=== PATIENT | male | born 1965 | race Hispanic/Latino ===

== ENCOUNTER → 2019-02-18 | Day surgery (SDC) | payer SELFPAY ==
[~2019-02-18] MED LIST: ACETAMINOPHEN 1000 MG/100 ML 100 ML IV ONE; ACETAMINOPHEN 1000 MG/100 ML IV ONE; CEFAZOLIN SOD 1 GM/NS 50ML 100 ML IV ONE; DESFLURANE 240 ML BTL INH ONE; DEXAMETHASONE SOD PHOS INJ 4 MG/ML VIAL ONE; EPINEPHRINE 1 MG/ML 30ML VIAL ONE; FENTANYL CITRATE/PF 100MCG/2 ML INJ ONE; GLYCOPYRROLATE INJ 1MG/ 5 ML SYR ONE; KETOROLAC TROMETHAMINE 30 MG/ML VIAL ONE; LIDOCAINE HCL 2% LOCAL INJ 5 ML SDV VIAL INJ ONE; MIDAZOLAM HCL 2 MG/2 ML VIAL ONE; NEOSTIGMINE 5 MG/5ML SYR ONE; ONDANSETRON HCL INJ 2MG/ML 2ML 2 MG/ML VIAL ONE; PROPOFOL IV EMULSION 10 MG/ML 20 ML VIAL ONE; ROCURONIUM BROMIDE 10 MG/ML 5ML VIAL ONE; ROPIVACAINE 0.5% 5 MG/ML 30 ML SDV ONE
--- NOTE | 2019-02-18 07:35 | NUR ---
SPIRITUAL CARE - Pre-Surgery Assessment: Pt in bed. Pt's at bedside. Pt reported supportive attention from family and friends. Intervention: I provided pastoral presence, hospitality, sympathetic listening, and prayer. I acquainted pt with availability of machinist 2nd shift while hospitalized. Outcome: Pt expressed appreciation for visit. No need for follow up indicated at this time. EDWIN LYNN [employer] Spiritual Care Department O: [phone] Pager: [phone] ([phone] number calling from)
[2019-02-18 12:30] VITALS: BP 122/78
--- NOTE | 2019-02-20 00:49 | Operative Report ---
DATE OF PROCEDURE: 02/18/2019 SURGEON: Андрей Bashir MD PREOPERATIVE DIAGNOSES: Right shoulder labral tear, right shoulder acromioclavicular joint arthrosis. POSTOPERATIVE DIAGNOSES: Right shoulder labral tear, right shoulder synovitis, right shoulder acromioclavicular joint arthritis. OPERATION AND PROCEDURE PERFORMED: The patient underwent a right shoulder exam under anesthesia, right shoulder arthroscopy, right shoulder arthroscopic debridement of synovitis, right shoulder arthroscopic debridement of labrum, a right shoulder arthroscopic biceps tenodesis, right shoulder arthroscopic subacromial decompression and acromioplasty and right shoulder arthroscopic distal clavicle resection. BRIEF DISCUSSION OF THE PATIENT'S OPERATIVE PROCEDURE: Mr. Bliss was taken to the operating room and placed in a supine position on the operating room table. Following induction of general anesthesia as well as endotracheal intubation, the patient's right upper extremity was examined under anesthesia. He was found to have full passive range of motion in the shoulder joint. There was no evidence of instability of the shoulder. The patient's shoulder was prepped and draped in the standard surgical fashion. Standard posterolateral and anterior portals were created without difficulty. The scope was placed in the shoulder joint atraumatically. Examination of the glenohumeral articulation demonstrated no significant evidence of chondromalacia. There were no loose bodies in the shoulder joint. The rotator cuff was found to be in good condition and attached firmly to the greater tuberosity of the humerus. Examination of the labrum demonstrated a torn labrum from anterior to posterior. The labral tear also extends into the biceps tendon. A shaver was placed in the shoulder joint. The labral tissue was debrided. There was extensive damage to the anterior arm of the labrum and the labral injury was therefore deemed unrepairable. The synovitis in the shoulder was debrided using a motorized shaver. The rotator interval was also debrided at this time in preparation for an all-inside biceps tenodesis. The sutures were shuttled through the biceps tendon and rotator interval. The biceps tendon was then released from its attachment at the superior rim of the glenoid. The biceps tendon was then drawn into the rotator interval. The shoulder was deflated with sterile normal saline. The scope was then placed in the subacromial space. There was marked bursitis in the subacromial space. A lateral portal was created through an outside in technique. A bursectomy was performed. The bursal surface of the rotator cuff tissue was found to be intact. The sutures were found in the rotator interval anteriorly in the shoulder. The biceps tenodesis was completed by tying these sutures firmly over the rotator interval. The coracoacromial ligament was resected. There was a downward sloping acromion and an acromioplasty was performed with this time. Shaver was transferred to the anterior portal. The acromioclavicular joint was easily identified. There was marked arthrosis of the joint. A 1 cm section of the distal clavicle was resected at this time. This was confirmed by transferring the scope to the anterior portal. The shoulder was inflated with sterile normal saline. The portal sites were closed. Sterile dressings were applied. The patient was provided a shoulder immobilizer, awakened, and taken to the postanesthesia care in stable condition. Sarah Wynne was the first line production supervisor for this case and was necessary for the prepping and draping the patient as well as the positioning of the arm and the passage of suture that allowed this case to be successful. MD ABRIL Mackenzie/YOSHI /[id number]
== END | disposition home or self-care (01) ==
LOC: OR 06:20
PROVIDERS: ATTEND Specialist
DX: M19.011 Primary osteoarthritis, right shoulder (principal); M65.811 Other synovitis and tenosynovitis, right shoulder; S43.431A Superior glenoid labrum lesion of right shoulder, initial encounter; Z83.3 Family history of diabetes mellitus; Z01.810 Encounter for preprocedural cardiovascular examination
CPT/HCPCS: 29824; 29826; 29828; 93005; J0131; J0690; J1100; J1885; J2001; J2250; J2405; J2704; J2795; J3010; J3490

== ENCOUNTER 2019-05-08 10:26 | Outpatient (RCR) | payer SELFPAY | END 2019-05-14 | LOC: PT 10:26 | PROVIDERS: ATTEND Specialist | DX: M75.21 Bicipital tendinitis, right shoulder (principal); M25.611 Stiffness of right shoulder, not elsewhere classified ==